=== PATIENT | male | born 1975 | race Hispanic/Latino ===

== ENCOUNTER 2019-07-13 11:06 | Emergency (ER) | payer OTHER ==
[2019-07-13] MEDS ORDERED: LIDOCAINE 1%-EPI 1:100,000 20 ML VIAL IJ ONE (11:32)
[2019-07-13] MEDS ORDERED: TETANUS/DIPHTHERIA TOXOID [ADULT] 0.5 ML VIAL IM ONE (12:02)
== END 2019-07-13 12:52 | disposition home or self-care (01) ==
LOC: EDH 11:06
DX: S51.812A Laceration without foreign body of left forearm, initial encounter (principal); Z72.0 Tobacco use; W20.8XXA Other cause of strike by thrown, projected or falling object, initial encounter; Y93.89 Activity, other specified; Y92.69 Other specified industrial and construction area as the place of occurrence of the external cause; Y99.8 Other external cause status
CPT/HCPCS: 12002; 73090; 90471; 90714; 99283; J3490